=== PATIENT | female | born 1975 | race African-American/Black ===

== ENCOUNTER 2021-10-17 10:43 | Emergency (ER) | payer OTHER, SELFPAY ==
[2021-10-17] VITALS (7 sets, daily range): BP systolic 107–129; BP diastolic 57–72; PULSE 88–103; RESP 16–18; TEMP 36.6; O2SAT 99–100
--- NOTE | ~2021-10-17 | US_ITS ---
EXAMINATION: US venous doppler [facility] DATE: 10/17/2021 12:46 INDICATION: Left lower limb pain and swelling TECHNIQUE: Grayscale ultrasound images without and with compression and Doppler ultrasound images of the left lower extremity veins were obtained. COMPARISON: None. FINDINGS: Noncompressible deep venous thrombosis in the left common femoral vein, profunda (deep) femoral vein, femoral vein, popliteal vein, peroneal veins, posterior tibial veins and the lesser saphenous vein. The gastrocnemius vein and saphenous vein outflow both demonstrate normal directional venous flow on color Doppler. IMPRESSION: 1. Extensive deep venous thrombosis in the left lower limb including both above and below the left k nee. Reviewed, dictated and finalized at location B. IMPRESSION: 1. Extensive deep venous thrombosis in the left lower limb including both abov e and below the left knee.
--- NOTE | 2021-10-17 13:06 | ED.LOWEXIN ---
HPI - Extremity Injury (Lower) General Chief Complaint: Extremity Injury, Lower Stated Complaint: left leg swelling Time Seen by Provider: 10/17/21 12:39 Source: patient Mode of arrival: ambulatory Limitations: no limitations History of Present Illness HPI Narrative: Patient is a 45-year-old female complaining of left leg pain and swelling that started 1 week ago. Patient states that her pain is moderate, dull, aching, worse with movement. Patient denies any injury to the area. Patient denies any cold extremity, chest pain, shortness of breath, fever or chills. Patient admits to recent travel, was on a plane 2 days ago and yesterday. Related Data Home Medications Medication Instructions Recorded Confirmed No Home Medications 10/17/21 10/17/21 Allergies Allergy/AdvReac Type Severity Reaction Status Date / Time ANTIINFLAMMATORIES Allergy Mild DUE TO Uncoded 10/17/21 13:15 LAPBAND SURGERY PER PT Review of Systems Review of Systems: All systems reviewed & are unremarkable except as noted in HPI and below Constitutional: Constitutional: Denies body ache(s), Denies chills, Denies excessive sweating, Denies fatigue, Denies fever(s), Denies headache(s), Denies lethargy, Denies malaise, Denies weakness and Denies weight loss Eyes: Eyes: Denies blurry vision, Denies change in vision and Denies loss of vision ENT: Denies dizziness, Denies ear discharge, Denies headache(s), Denies lip swelling, Denies epistaxis, Denies nasal congestion, Denies neck pain, Denies throat swelling and Denies tongue swelling Cardiovascular: Cardiovascular: Denies chest pain, Denies chest pain at rest, Denies chest pain with activity, Denies diaphoresis, Denies rapid heart rate, Denies edema, Denies irregular heart rhythm, Denies lightheadedness, Denies palpitations, Denies dyspnea and Denies dyspnea on exertion Respiratory: Respiratory: Denies chest congestion, Denies cough, Denies hemoptysis, Denies dyspnea and Denies dyspnea on exertion Gastrointestinal: Gastrointestinal: Denies abdominal pain, Denies melena, Denies hematochezia, Denies diarrhea, Denies nausea, Denies vomiting and Denies hematemesis Musculoskeletal: Musculoskeletal: Denies abnormal gait, Denies deformity, Denies joint swelling, Denies limited range of motion, Denies neck pain and Denies numbness Neurologic: Denies Abnormal speech present, Denies abnormal gait, Denies confusion, Denies dizziness, Denies headache(s), Denies focal weakness, Denies loss of vision, Denies numbness, Denies Other visual disturbances, Denies Sensory deficit (Neuro) and Denies weakness Psychiatric: Psychiatric: Denies confusion, Denies depression, Denies auditory hallucinations, Denies homicidal ideation and Denies suicidal ideation Endocrine: Endocrine: Denies cold intolerance, Denies excessive sweating, Denies fatigue, Denies heat intolerance and Denies palpitations Hematologic/Lymphatic: Hematologic/Lymphatic: Denies easy bleeding and Denies easy bruising Allergic/Immunologic: Allergic/Immunologic: Denies lip swelling, Denies throat swelling and Denies tongue swelling [facility] Social History Social History Smoking status: Never smoker Alcohol intake: never Comments Past medical history: None Family history: None Social history: Non-smoker no EtOH or drug use Exam Const: General: cooperative, healthy appearing, comfortable, no acute distress, well developed, alert and awake; No confusion Orientation/consciousness: oriented to person, oriented to place, oriented to time, patient oriented x3 and No confusion Limitations: no limitations HENMT: Head: normal to inspection, normocephalic and atraumatic Ears: hearing grossly normal bilaterally, TM normal on the right and TM normal on the left General nose exam: Normal external nose present, Normal nares present and No nasal discharge present Face and sinus: normal facial exam Mouth:
--- NOTE | 2021-10-17 13:11 | PC.NURSE ---
pt complaining about room mate. Pt threatening to leave.
[2021-10-17] MEDS: CYCLOBENZAPRINE HCL 10 MG TABLET PO (13:38)
[2021-10-17 14:16] LABS: Basophils Absolute Auto 0.1 K/mm3 (0.0-0.1); Basophils Percent Auto 0.6 % (0.2-1.2); Eosinophils Absolute Auto 0.2 K/mm3 (0-0.3); Eosinophils Percent Auto 1.8 % (0-4.4); Hematocrit 23.3 % (37.0-47.0); Immature Granulocyte Absolute 0.02 K/mm3 (0.00-0.031); Immature Granulocyte Percent A 0.2 % (0-0.5); Lymphocytes Absolute Auto 3.11 K/mm3 (0.9-3.2); Lymphocytes Percent Auto 38.1 % (18.3-44.2); Mean Corpuscular HGB Conc 28.3 g/dl (32-36); Mean Corpuscular Hemoglobin 17.5 pg (26-34); Mean Corpuscular Volume 61.8 fl (80-100); Mean Platelet Volume 8.9 fl (7.4-10.4); Monocytes Absolute Auto 0.5 K/mm3 (0.1-0.6); Monocytes Percent Auto 5.5 % (2.6-8.5); Neutrophils Absolute Auto 4.4 K/mm3 (1.3-6.7); Neutrophils Percent Auto 53.8 % (45.5-73.1); Platelet Count Result 699 k/mm3 (150-375); Red Blood Count 3.77 M/mm3 (4.2-5.4); Red Cell Distribution Width 18.7 % (11.5-14.5); White Blood Count 8.2 K/mm3 (4.5-10.0)
[2021-10-17 14:39] LABS: Alanine Aminotransferase 25 U/L (4-35); Albumin Level 3.6 g/dL (3.5-5.1); Alkaline Phosphatase 81 U/L (38-126); Anion Gap 8 mmol/L (8-16); Aspartate Amino Transferase 51 U/L (14-36); Bilirubin,Total 0.2 mg/dL (0.2-1.3); Blood Urea Nitrogen 9 mg/dL (7-17); Calcium 8.8 mg/dL (8.4-10.2); Carbon Dioxide 31 mmol/L (22-30); Chloride 100 mmol/L (98-107); Estimated CRCL calculation 157 ml/min; Estimated Glomerular Filt Rate > 60; Glucose 94 mg/dL (65-110); INR 1.2; Potassium 3.6 mmol/L (3.4-5.0); Prothrombin Time 14.8 Seconds (11.1-14.7); Sodium 139 mmol/L (137-145)
[2021-10-17 14:52] LABS: Hemoglobin 6.6 g/dL (12.0-15.0)
[2021-10-17 14:53] LABS: Platelet Estimate Increased (Adequate)
[2021-10-17 14:54] LABS: Hypochromasia 1+ (NORMAL)
[2021-10-17 14:55] LABS: Anisocytosis 1+ (NORMAL)
[2021-10-17 18:40] LABS: SARS-CoV-2 RNA PCR Negative
[2021-10-17] MEDS: HYDROcodone/acetaminophen (*CRX) 7.5-325 MG TABLET 1 TAB PO (19:04)
--- NOTE | 2021-10-17 19:15 | PC.NURSE ---
ASsumed care of pt at this time. Pt alert and upright on stretcher, requesting blanket. Pt denies CP or SOB, updated on POC.
--- NOTE | 2021-10-17 19:47 | PC.NURSE ---
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 Pt states let me rest in peace . Family at bedside. Call light within reach.
[2021-10-18] VITALS (13 sets, daily range): BP systolic 100–123; BP diastolic 57–73; PULSE 88–102; RESP 12–18; O2SAT 91–100
[2021-10-18] MEDS: HYDROcodone/acetaminophen (*CRX) 5-325 MG TABLET 1 TAB PO ×2 (01:45→12:59)
--- NOTE | 2021-10-18 01:48 | PC.NURSE ---
Pt moved to hospital bed at this time. Lights dimmed.
--- NOTE | 2021-10-18 05:55 | PC.NURSE ---
Addendum entered by Briseida Langston 10/18/21 06:12: 0606: PATIENT PLACED ON WAITLIST AT [facility] ([place], [place]). THEY ARE AT [facility]...PATIENT HAS NOT YET BEEN ACCEPTED...ONLY ON WAITLIST. IF/WHEN BED BECOMES AVAILABLE, AT THAT TIME CONTACT TO [facility] WILL BE MADE FOR ACCEPTANCE. Original Note: BED STATUS: 18:55 - CALLED FOR BED STATUS - NOTHING AVAILABLE. 21:30 - CALLED FOR BED STATUS - NOTHING AVAILABLE. 0550 - MURRAY FROM BED PLACEMENT CALLED...AT [facility]...POSSIBLY AFTER 9 OR 9:30 05:52 - CALLED [facility] & SPOKE TO [place], NO BEDS AVAILABLE AT ANY OF THEIR FACILITIES. PATIENT WOULD BE PLACED ON WAITLIST. [facility] DOES HAVE V[facility]ULAR, BUT AT [facility]. 05:56 - CALLED [facility] AND SPOKE TO MURRAY. CONFIRMED PATIENT HAS BEEN ACCEPTED TO [facility] (NOT [facility]). ACCEPTING DOCTOR REQUESTED PATIENT BE PLACED AT [facility].
--- NOTE | 2021-10-18 07:20 | PC.NURSE ---
Assumed care of pt at this time, pt has daughter at bedside. Discussed POC, pt declines blood transfusion at this time. Pt is alert and upright on stretcher. VSS. Awaiting bed placement.
--- NOTE | 2021-10-18 07:51 | PC.NURSE ---
Breakfast tray ordered for pt at this time. Spoke to Alana in dietary.
--- NOTE | 2021-10-18 12:09 | PC.NURSE ---
Lunch tray ordered for pt at this time.
--- NOTE | 2021-10-18 12:50 | PC.NURSE ---
PER [facility] EDP DR GIRALDO, GIVE PT NORCO 5 FOR PAIN, ORDER PLACED
--- NOTE | 2021-10-18 15:39 | PC.NURSE ---
Pt called sec desk to request RN. This RN responded immediately, pt states Me and my have been patient, but we are now at the point where we did some discussing and we plan to get out of here and go directly to [facility]. It ain't doin' me no good to sit here and wait for a bed. If I go straight there, they cannot deny me. Im done waiting. Get me a paper, all due respect, I've been patient, but no more. I need to get out of here. Pt VS taken and stable. Discussed pt wishes w/ Dr Flores who was made aware of pt wishes.
--- NOTE | 2021-10-18 15:49 | PC.NURSE ---
Pt signed AMA paperwork, given dc notes/disc. Pt taken to car via w/c.
== END 2021-10-18 15:51 | disposition short-term general hospital (02) ==
PROVIDERS: Emergency Provider Emergency Medicine
DX: I82.412 Acute embolism and thrombosis of left femoral vein (principal); I82.432 Acute embolism and thrombosis of left popliteal vein; I82.452 Acute embolism and thrombosis of left peroneal vein; I82.442 Acute embolism and thrombosis of left tibial vein; I82.492 Acute embolism and thrombosis of other specified deep vein of left lower extremity; D64.9 Anemia, unspecified; Z20.822 Contact with and (suspected) exposure to COVID-19
CPT/HCPCS: 36415; 80053; 85025; 85610; 85730; 93971; 99285; A9270; C9803; U0003; U0005

== ENCOUNTER 2022-08-07 13:31 | Emergency (ER) | payer OTHER, SELFPAY ==
[2022-08-07 14:48] VITALS: BP 116/78; PULSE 120; RESP 16; TEMP 36.7; O2SAT 100
--- NOTE | 2022-08-07 15:24 | ED.GENADULT ---
HPI - General Adult General Chief complaint: Unspecified Stated complaint: dehydrated Time Seen by Provider: 08/07/22 15:01 History of Present Illness HPI narrative: 46-year-old female presenting to the Emergency Department for evaluation of dehydration. Patient has a lap band that had been too tight. Patient states over the course of the weekend she had been unable to keep any fluids down. Patient did have follow-up with her bariatric physician and she had her lap band adjusted. Patient states she is now tolerating p.o. at this time. Patient was sent here for IV fluids because she is still dehydrated. Patient denies any current nausea or vomiting. Patient states he does have some abdominal soreness after all of the nausea and vomiting but patient states she was evaluated by her surgeon and they felt everything was within normal limits. Related Data Allergies Allergy/AdvReac Type Severity Reaction Status Date / Time ANTIINFLAMMATORIES Allergy Mild DUE TO Uncoded 10/17/21 13:15 LAPBAND SURGERY PER PT Review of Systems Review of Systems: CONSTITUTIONAL: See HPI EYES: Denies visual changes, redness, or discharge. ENT: Denies rhinorrhea, congestion, sore throat, or otalgia. CARDIOVASCULAR: Denies chest pain, palpitations, or edema. RESPIRATORY: Denies cough or dyspnea. GASTROINTESTINAL: See HPI GENITOURINARY: Denies dysuria or hematuria. SKIN: Denies rash or itching. MUSCULOSKELETAL: Denies back pain, joint pain, or myalgia. NEUROLOGIC: Denies headache, numbness, or weakness. PMFSH Social History Social History Smoking status: Never smoker Alcohol intake: never Exam Narrative: APPEARANCE: Well appearing, no pain, no distress, well-nourished. HEAD: normocephalic, atraumatic. EYES: PERRLA/EOMI, conjunctivae clear. NOSE: Normal no drainage NECK: Supple. No adenopathy, no masses. RESPIRATORY: Airway patent, respirations nonlabored. Clear to auscultation bilaterally, no rales, rhonchi, wheezing. CARDIOVASCULAR: Regular rate and rhythm without murmurs rubs or gallops. ABDOMINAL: Soft, nontender, nondistended, normal bowel sounds MUSCULOSKELETAL: Moves all extremities. Strength/ROM intact, No edema, No calf tenderness. NEURO: Alert. Cranial nerves II through XII intact. Grossly intact SKIN: Warm, dry. Normal Color Course Course Emergency Course: On exam patient has a soft nontender nonsurgical abdomen. Patient is being treated with IV fluids. Patient states she is tolerating p.o. but does still have some residual nausea. Patient is also being treated with 4 mg of IV Zofran. Patient's heart rate was improved with rehydration. Patient does have STACY but patient was treated with 2 L of normal saline and patient is now tolerating p.o. Patient was updated on results of her work-up and was encouraged of close follow-up with her primary care physician for repeat labs. Patient was provided Zofran for nausea control. Patient was updated on reasons to return to the emergency room. All questions concerns were addressed Vital Signs Vital signs: Vital Signs Temperature 98.1 F 08/07/22 14:48 Pulse Rate 120 H 08/07/22 14:48 Respiratory Rate 16 08/07/22 14:48 Blood Pressure 116/78 08/07/22 14:48 Pulse Oximetry 100 08/07/22 14:48 Temperature 98.1 F 08/07/22 14:48 Pulse Rate 120 H 08/07/22 14:48 Respiratory Rate 16 08/07/22 14:48 Blood Pressure 116/78 08/07/22 14:48 Pulse Oximetry 100 08/07/22 14:48 Medical Decision Making Vital Signs Vital Signs: Vital Signs Temperature 98.1 F 08/07/22 14:48 Pulse Rate 120 H 08/07/22 14:48 Respiratory Rate 16 08/07/22 14:48 Blood Pressure 116/78 08/07/22 14:48 Pulse Oximetry 100 08/07/22 14:48 Temperature 98.1 F 08/07/22 14:48 Pulse Rate 120 H 08/07/22 14:48 Respiratory Rate 16 08/07/22 14:48 Blood Pressure 116/78 08/07/22 14:48 Pulse Oximetry 100
[2022-08-07] MEDS: SODIUM CHLORIDE 0.9% IV 1,000 ML 999 ML IV CONT ×2 (15:43→16:22)
[2022-08-07] MEDS: ONDANSETRON INJ 4 MG/2 ML VIAL IV PUSH (15:45)
[2022-08-07 15:49] LABS: Basophils Percent Auto 0.5 % (0.2-1.2); Eosinophils Percent Auto 0.2 % (0-4.4); Hematocrit 50.3 % (37.0-47.0); Hemoglobin 16.2 g/dL (12.0-15.0); Immature Granulocyte Absolute 0.03 K/mm3 (0.00-0.031); Immature Granulocyte Percent A 0.3 % (0-0.5); Lymphocytes Percent Auto 25.4 % (18.3-44.2); Mean Corpuscular HGB Conc 32.2 g/dl (32-36); Mean Platelet Volume 10.1 fl (7.4-10.4); Monocytes Percent Auto 7.1 % (2.6-8.5); Neutrophils Absolute Auto 7.1 K/mm3 (1.3-6.7); Neutrophils Percent Auto 66.5 % (45.5-73.1); Platelet Count Result 453 k/mm3 (150-375); Red Blood Count 5.78 M/mm3 (4.2-5.4); White Blood Count 10.7 K/mm3 (4.5-10.0)
[2022-08-07 15:50] LABS: Basophils Absolute Auto 0.1 K/mm3 (0.0-0.1); Lymphocytes Absolute Auto 2.71 K/mm3 (0.9-3.2); Monocytes Absolute Auto 0.8 K/mm3 (0.1-0.6)
[2022-08-07 16:02] LABS: Alanine Aminotransferase 32 U/L (6-35); Albumin Level 5.4 g/dL (3.5-5.1); Alkaline Phosphatase 95 U/L (38-126); Anion Gap 15 mmol/L (8-16); Aspartate Amino Transferase 38 U/L (14-36); Bilirubin,Total 0.8 mg/dL (0.2-1.3); Blood Urea Nitrogen 79 mg/dL (7-17); Calcium 10.3 mg/dL (8.4-10.2); Carbon Dioxide 26 mmol/L (22-30); Chloride 110 mmol/L (98-107); Estimated CRCL calculation 33 ml/min; Estimated Glomerular Filt Rate 29; Glucose 136 mg/dL (65-110); Potassium 3.5 mmol/L (3.4-5.0); Sodium 151 mmol/L (137-145)
== END 2022-08-07 18:05 | disposition home or self-care (01) ==
PROVIDERS: Emergency Provider Emergency Medicine
DX: N17.9 Acute kidney failure, unspecified (principal); Z98.84 Bariatric surgery status
CPT/HCPCS: 36415; 80053; 85025; 96361; 96365; 96375; 99284; J0131; J2405; J7030

== ENCOUNTER 2022-08-13 11:34 | Emergency (ER) | payer OTHER, SELFPAY ==
[2022-08-13 11:48] VITALS: BP 140/84; PULSE 96; RESP 16; TEMP 36.9; O2SAT 96
[2022-08-13 14:13] VITALS: BP 162/106; PULSE 91; RESP 18; O2SAT 100
[2022-08-13 14:47] LABS: Strep Group A RT-PCR NOT DETECTED (Negative)
--- NOTE | 2022-08-13 15:14 | ED.EAR ---
HPI - Ear Problem General Chief complaint: Ear Stated complaint: R ear pain, right jaw/mouth pain Time Seen by Provider: 08/13/22 14:05 History of Present Illness HPI Narrative: Patient is a 46-year-old female who presents ER with 3 days of a sore throat and right ear pain. Associate with some discomfort on her right lower jaw. That she might have a dental infection. No fevers chills or sweats. Noticed blisters inside her mouth today. Has discomfort with swallowing but no inability to swallow. No known sick contacts. Related Data Allergies Allergy/AdvReac Type Severity Reaction Status Date / Time ANTIINFLAMMATORIES Allergy Mild DUE TO Uncoded 10/17/21 13:15 LAPBAND SURGERY PER PT Review of Systems Constitutional: Constitutional: Denies chills and Denies fever(s) ENT: Denies dysphagia, Denies nasal congestion and Reports sore throat Comments: right ear pain, mouth sores Respiratory: Respiratory: Denies cough and Denies dyspnea Integumentary/Breasts: Skin/Breast: Denies erythema, Denies rash and Denies skin ulcer PMFSH Past Medical History Medical History (Updated 08/13/22 @ 16:01 by Terrance Garcias MD) Healthy female adult Surgical History Surgical History (Updated 08/13/22 @ 16:01 by Terrance Garcias MD) No history of previous surgery Social History Social History Smoking status: Never smoker Alcohol intake: never Exam Narrative: GENERAL: Well-appearing, well-nourished, and in no acute distress. HEAD: Normocephalic, atraumatic. EYES: PERRL and EOMI. ENT: Mucous membranes moist. Small vesicles observed to the mouth consistent with herpangina. Normal-appearing posterior oropharynx. No dental tenderness or abscess. No facial swelling. TMs normal bilaterally. Tolerating oral secretions without issue. Neck: Supple without large anterior cervical chain lymphadenopathy EXTREMITIES: Normal range of motion. No edema. NEURO: Alert and oriented x3. PSYCH: Normal mood and affect. Course Course Emergency Course: Educated patient on besj-xwba-dbo-mouth disease. Viscous lidocaine here. Discharged with viscous lidocaine, [place], and chlorhexidine. Patient verbalized understanding treatment plan. She asked if she needed antibiotics but discussed that this is a viral infection and she does not have strep throat so supportive care is indicated. Vital Signs Vital signs: Vital Signs Temperature 98.4 F 08/13/22 11:48 Pulse Rate 96 08/13/22 11:48 Respiratory Rate 16 08/13/22 11:48 Blood Pressure 140/84 08/13/22 11:48 Pulse Oximetry 96 08/13/22 11:48 Oxygen Delivery Room Air 08/13/22 11:48 Temperature 98.4 F 08/13/22 11:48 Pulse Rate 91 08/13/22 14:13 Respiratory Rate 18 08/13/22 14:13 Blood Pressure 162/106 H 08/13/22 14:13 Pulse Oximetry 100 08/13/22 14:13 Oxygen Delivery Room Air 08/13/22 11:48 Medical Decision Making Vital Signs Vital Signs: Vital Signs Temperature 98.4 F 08/13/22 11:48 Pulse Rate 96 08/13/22 11:48 Respiratory Rate 16 08/13/22 11:48 Blood Pressure 140/84 08/13/22 11:48 Pulse Oximetry 96 08/13/22 11:48 Oxygen Delivery Room Air 08/13/22 11:48 Temperature 98.4 F 08/13/22 11:48 Pulse Rate 91 08/13/22 14:13 Respiratory Rate 18 08/13/22 14:13 Blood Pressure 162/106 H 08/13/22 14:13 Pulse Oximetry 100 08/13/22 14:13 Oxygen Delivery Room Air 08/13/22 11:48 Lab Data Labs: Lab Results 08/13/22 Range/Units 14:17 Group A Strep (PCR) Not detected (Negative) Discharge Plan Discharge Clinical Impression: Herpangina Patient Disposition: Home, Self-Care Condition: Stable Instructions: Hand, Foot, and Mouth Disease (ED) Additional Instructions: Viral infection that can cause blisters in mouth and you may develop some spots on her hands or feet. Take norco as needed for pain, may a
[2022-08-13] MEDS: LIDOCAINE HCL 2% VISC SOLN 15 ML UDC PO (15:23)
== END 2022-08-13 15:57 | disposition home or self-care (01) ==
PROVIDERS: Emergency Provider Emergency Medicine
DX: B08.5 Enteroviral vesicular pharyngitis (principal)
CPT/HCPCS: 87651; 99283

== ENCOUNTER 2024-03-27 12:11 | Emergency (ER) | payer SELFPAY ==
[2024-03-27 12:23] VITALS: BP 132/73; PULSE 89; RESP 16; TEMP 36.6; O2SAT 100
== END 2024-03-27 14:07 | disposition left against medical advice (07) ==
LOC: ANHED 13:25
DX: M25.512 Pain in left shoulder (principal)
CPT/HCPCS: 99199